=== PATIENT | male | born 1975 | race Caucasian/White ===

== ENCOUNTER 2017-09-25 21:38 | Emergency (ER) | payer MEDICAID ==
[~2017-09-25] VITALS: Ht 182.9 cm; Wt 112.5 kg
[~2017-09-25 21:38] MED LIST: AMO500 PO; BIA500 PO; GABAPENTIN100 M2 PO; MUSCLE RELAXER; PRI20 PO; TRAMADOL HCL50 MG PO
[2017-09-26 00:07] VITALS: BP 168/87
== END 2017-09-26 00:07 | disposition home or self-care (01) ==
LOC: ED 21:38
DX: S39.012A Strain of muscle, fascia and tendon of lower back, initial encounter (principal); V43.52XA Car driver injured in collision with other type car in traffic accident, initial encounter; Y93.I9 Activity, other involving external motion; Y92.488 Other paved roadways as the place of occurrence of the external cause; Y99.8 Other external cause status
CPT/HCPCS: J1885